=== PATIENT | female | born 1955 | race Caucasian/White ===

== ENCOUNTER 2018-11-02 10:28 | Emergency (ER) | payer OTHER ==
[~2018-11-02] VITALS: Ht 162.6 cm; Wt 60.0 kg
[~2018-11-02 10:28] MED LIST: CRANBERR3 PO; CULTURELL1; CYCLOBENZAPR10 MG PO; DUONEB IN; LOVENOX60 MG/0.1 SC; MELOXICAM7.5 MG PO; METFORMIN500 MG PO; METOPROL TAR25 MG PO; PERCOCET 5/325M1 TAB PO; PRAVASTATIN SOD20 MG PO; ROCEPHIN 1 GM1 GM IV; TRAMADOL HCL50 MG PO; TRAZODONE50 MG PO; VENLAFAXINE HCL75 M1 PO; VITAMIN B CO PO
[2018-11-02] MEDS ORDERED: FLEXERIL PO (11:53)
[2018-11-02 11:59] VITALS: BP 121/79
== END 2018-11-02 12:07 | disposition home or self-care (01) | DRG 552 ==
LOC: ED 10:28
DX: S33.5XXA Sprain of ligaments of lumbar spine, initial encounter (principal); E11.9 Type 2 diabetes mellitus without complications; F17.290 Nicotine dependence, other tobacco product, uncomplicated; X58.XXXA Exposure to other specified factors, initial encounter

== ENCOUNTER 2019-08-12 | Emergency (ER) | payer MEDICARE ==
[~2019-08-12] MED LIST changes: +BACTRIM DS1 TAB PO; +FLEXERIL PO; +PYRIDIUM200 MG PO
[2019-08-12 16:38] LABS: HEMATOCRIT 41.3 % (37.0-47.0); HEMOGLOBIN 13.7 g/dl (12.0-16.0); IMMATURE GRANULOCYTES 0.2 % (0.0-5.0); MEAN CELL VOLUME 93.4 fL CALC (80.0-100.0); MEAN CORPUSCULAR HGB CONC 33.2 g/L CALC (32.0-36.0); NEUT# 3.41 thou/uL (2.00-7.15); RED BLOOD COUNT 4.42 mill/uL (4.20-5.60)
[2019-08-12 16:57] LABS: ALBUMIN 4.5 g/dL (3.2-5.0); ALKALINE PHOSPHATASE 87 u/l (38-126); AMYLASE 64 u/l (30-110); ANION GAP 11 (6-22 (CALC)); BILIRUBIN, TOTAL 0.4 mg/dL (0.0-1.4); BUN 11 mg/dL (8-23); BUN/CREATININE RATIO 25 (12-20 (CALC)); CARBON DIOXIDE 29 mmol/l (22-30); CHLORIDE 101 mmol/l (95-108); CREATININE 0.5 mg/dL (0.5-1.0); GFR > 60 ML/MIN (>=60 (CALC)); GFR FOR AFR.AMER. > 60 ML/MIN (>=60 (CALC)); LIPASE 57 u/l (23-300); POTASSIUM 3.9 mmol/l (3.5-5.1); SODIUM 136 mmol/l (137-146); TOTAL PROTEIN 7.9 g/dL (6.3-8.2)
[2019-08-12 17:24] LABS: SGOT/AST 37 u/l (9-36)
[2019-08-12] MEDS ORDERED: METRONIDAZOL250 MG PO (19:05)
[2019-08-12] MEDS ORDERED: CIPROFLOXACN500 MG PO (19:05)
[2019-08-12] MEDS ORDERED: LOMOTIL2.5 MG PO (19:05)
[2019-08-12] MEDS ORDERED: ONDANSETRON4 MG PO (19:05)
[2019-08-12 19:14] LABS: URINE BILIRUBIN - DIPSTICK NEGATIVE (NEGATIVE); URINE BLOOD DIPSTICK NEGATIVE (NEGATIVE); URINE COLOR YELLOW; URINE GLUCOSE - DIPSTICK NEGATIVE (NEGATIVE); URINE KETONE NEGATIVE (NEGATIVE); URINE LEUK ESTERASE NEGATIVE (NEGATIVE); URINE NITRITE - DIPSTICK NEGATIVE (Negative); URINE PH 7.5 (4.5-8.0); URINE PROTEIN - DIPSTICK NEGATIVE (NEG-TRACE); URINE SPECIFIC GRAVITY <=1.005; URINE UROBILINOGEN - DIPSTICK 0.2 E.U./dL (0.2)
== END 2019-08-12 19:53 | disposition home or self-care (01) ==
DX: K52.9 Noninfective gastroenteritis and colitis, unspecified (principal); R10.13 Epigastric pain
CPT/HCPCS: Q9967

== ENCOUNTER 2020-09-13 09:09 | Emergency (ER) | payer MEDICARE ==
[~2020-09-13] VITALS: Ht 162.6 cm; Wt 70.0 kg
[~2020-09-13 09:09] MED LIST changes: +CIPROFLOXACN500 MG PO; +LOMOTIL2.5 MG PO; +METRONIDAZOL250 MG PO; +ONDANSETRON4 MG PO
[2020-09-13 10:25] LABS: HEMATOCRIT 40.7 % (37.0-47.0); HEMOGLOBIN 13.1 g/dl (12.0-16.0); IMMATURE GRANULOCYTES 0.2 % (0.0-5.0); MEAN CELL VOLUME 93.1 fL CALC (80.0-100.0); MEAN CORPUSCULAR HGB CONC 32.2 g/dL CAL (32.0-36.0); NEUT# 3.28 thou/uL (2.00-7.15); RED BLOOD COUNT 4.37 mill/uL (4.20-5.60); RED CELL DISTRI WIDTH 13.7 % (11.5-15.5)
[2020-09-13 10:49] LABS: ALBUMIN 4.8 g/dL (3.2-5.0); ALKALINE PHOSPHATASE 95 u/l (38-126); ANION GAP 11 (6-22 (CALC)); BUN 14 mg/dL (8-23); BUN/CREATININE RATIO 24 (12-20 (CALC)); CARBON DIOXIDE 30 mmol/l (22-30); CHLORIDE 99 mmol/l (95-108); CREATININE 0.6 mg/dL (0.5-1.0); GFR > 60 ML/MIN (>=60 (CALC)); GFR FOR AFR.AMER. > 60 ML/MIN (>=60 (CALC)); POTASSIUM 4.2 mmol/l (3.5-5.1); SGOT/AST 26 u/l (9-36); SODIUM 136 mmol/l (137-146); TOTAL PROTEIN 8.3 g/dL (6.3-8.2)
[2020-09-13 10:50] LABS: BILIRUBIN, TOTAL 0.5 mg/dL (0.0-1.4)
[2020-09-13] MEDS ORDERED: TRAMADOL HCL50 MG PO (11:37)
[2020-09-13] MEDS ORDERED: AMITRIPTYLIN10 MG PO (11:38)
[2020-09-13 13:46] VITALS: BP 128/67
== END 2020-09-13 13:46 ==
LOC: ED 09:09
PROVIDERS: Family Medicine
DX: M54.6 Pain in thoracic spine (principal); E11.9 Type 2 diabetes mellitus without complications; F32.9 Major depressive disorder, single episode, unspecified; F17.200 Nicotine dependence, unspecified, uncomplicated; Z79.84 Long term (current) use of oral hypoglycemic drugs; Z98.890 Other specified postprocedural states; Z98.1 Arthrodesis status

== ENCOUNTER 2022-08-10 06:44 | Emergency (ER) | payer MEDICARE, OTHER ==
[~2022-08-10] VITALS: Ht 162.6 cm; Wt 54.0 kg
[2022-08-10] VITALS (8 sets, daily range): BP systolic 112–141; BP diastolic 68–94
[~2022-08-10 06:44] MED LIST changes: +AMITRIPTYLIN10 MG PO; +DIAZEPAM5 MG PO; +FENOFIBRATE150 MG PO
[2022-08-10 08:07] LABS: ALBUMIN 4.6 g/dL (3.2-5.0); ALKALINE PHOSPHATASE 77 u/l (38-126); ANION GAP 12 (6-22 (CALC)); BUN 13 mg/dL (8-23); BUN/CREATININE RATIO 23 (12-20 (CALC)); CARBON DIOXIDE 28 mmol/l (22-30); CHLORIDE 103 mmol/l (95-108); CREATININE 0.6 mg/dL (0.5-1.0); GFR FOR AFR.AMER. > 60 ML/MIN (>=60 (CALC)); GFR OTHER RACES > 60 ML/MIN (>=60 (CALC)); LIPASE 48 u/l (23-300); POTASSIUM 4.7 mmol/l (3.5-5.1); SGOT/AST 30 u/l (9-36); SODIUM 138 mmol/l (137-146); TOTAL PROTEIN 7.3 g/dL (6.3-8.2)
[2022-08-10 08:10] LABS: BILIRUBIN, TOTAL 0.4 mg/dL (0.02-1.3)
[2022-08-10 08:26] LABS: BASO% 0.9 % (0-3); EOS% 5.5 % (0-8); HEMATOCRIT 39.6 % (37.0-47.0); HEMOGLOBIN 12.5 g/dl (12.0-16.0); IMMATURE GRANULOCYTES 0.6 % (0.0-5.0); LYMPH% 17.5 % (15-41); MEAN CELL VOLUME 94.7 fL CALC (80.0-100.0); MEAN CORPUSCULAR HGB 29.9 pG CALC (26.0-32.0); MEAN CORPUSCULAR HGB CONC 31.6 g/dL CAL (32.0-36.0); MONO% 6.2 % (2-13); NEUT# 3.25 thou/uL (2.00-7.15); NEUT% 69.3 % (42-76); RED BLOOD COUNT 4.18 mill/uL (4.20-5.60); RED CELL DISTRI WIDTH 13.5 % (11.5-15.5)
== END 2022-08-10 12:35 | disposition home or self-care (01) ==
LOC: ED 06:44
PROVIDERS: Emergency Medicine
DX: K59.00 Constipation, unspecified (principal); E11.9 Type 2 diabetes mellitus without complications; F31.9 Bipolar disorder, unspecified; Z90.49 Acquired absence of other specified parts of digestive tract; Z90.710 Acquired absence of both cervix and uterus; Z98.1 Arthrodesis status; Z79.84 Long term (current) use of oral hypoglycemic drugs
CPT/HCPCS: Q9967